=== PATIENT | male | born 1985 | race Caucasian/White ===

== ENCOUNTER 2024-06-27 20:38 | Emergency (ER) | payer SELFPAY ==
[~2024-06-27] VITALS: Ht 177.8 cm; Wt 118.0 kg
[2024-06-27 20:42] VITALS: O2SAT 98
[2024-06-27 21:52] LABS: DIFFERENTIAL COMMENT 1; HEMOGLOBIN. 12.5 g/dL (14.0-18.0); MEAN CORPUSCULAR HEMOGLOBIN 27.6 pg (28.0-32.0); MEAN CORPUSCULAR HGB CONC 31.9 g/dL (31.0-37.0); MEAN CORPUSCULAR VOLUME 86.4 fL (80.0-94.0); MEAN PLATELET VOLUME 7.9 fl (7.4-10.4); PLATELET 325 x1000/uL (130-400); RED BLOOD CELL COUNT 4.52 mill/uL (4.7-6.1); WHITE BLOOD COUNT 7.8 x1000/uL (4.5-11.0)
[2024-06-27 21:58] LABS: CHLORIDE 92 mEq/L (98-107); POTASSIUM 3.8 mEq/L (3.5-5.1); SODIUM 132 mEq/L (136-145)
[2024-06-27 21:59] LABS: CALCIUM 9.1 mg/dL (8.7-10.4); CARBON DIOXIDE 27 mEq/L (21-32)
[2024-06-27 22:04] LABS: CREATININE 0.9 mg/dL (0.6-1.3); UREA NITROGEN BLOOD 9 mg/dL (9-23)
[2024-06-27 22:06] LABS: ACETAMINOPHEN < 2 ug/mL (10-30)
[2024-06-27 22:07] LABS: ETHANOL BLOOD < 10 mg/dL (<10); GLUCOSE 547 mg/dL (70-105)
[2024-06-27 22:19] LABS: ATYPICAL LYMPHOCYTES 2
[2024-06-27 22:20] LABS: PLATELET ESTIMATE NORMAL
[2024-06-27 22:49] LABS: CLARITY URINE CLEAR (CLEAR); COLOR URINE YELLOW (YELLOW); GLUCOSE URINE 3+ (NEGATIVE); KETONES URINE NEGATIVE (NEGATIVE); LEUKOCYTE ESTERASE URINE NEGATIVE (NEGATIVE); NITRITE URINE NEGATIVE (NEGATIVE); OCCULT BLOOD URINE NEGATIVE (NEGATIVE); PH URINE 6.5 (4.5-8.0); PROTEIN URINE NEGATIVE (NEGATIVE); SPECIFIC GRAVITY URINE 1.032 (1.005-1.030); UROBILINOGEN URINE 0.2 E.U./dL (0.2-1.0)
[2024-06-27 22:59] LABS: *AMPHETAMINES SCREEN URINE NEGATIVE (NEGATIVE); *BARBITURATES SCREEN URINE NEGATIVE (NEGATIVE); *BENZODIAZEPINES SCREEN URINE NEGATIVE (NEGATIVE)
[2024-06-27 23:00] LABS: *COCAINE SCREEN URINE NEGATIVE (NEGATIVE); CANNABINOID URINE SCREEN NEGATIVE (NEGATIVE); ECSTASY MDMA SCREEN URINE NEGATIVE (NEGATIVE); METHADONE URINE SCREEN NEGATIVE (NEGATIVE); OPIATES URINE SCREEN NEGATIVE (NEGATIVE); PHENCYCLIDINE URINE SCREEN NEGATIVE (NEGATIVE)
[2024-06-27 23:06] LABS: BACTERIA URINE TRACE
[2024-06-27 23:07] LABS: RBC URINE NONE SEEN /hpf (0-2); SQUAMOUS EPITHELIAL CELL URINE RARE /lpf (RARE/1+); WBC URINE 0-2 /hpf (0-2)
[2024-06-28] MEDS ORDERED: INSULIN REGULAR (HUMULIN R) 1000UNITS/10ML VIAL SUBCUT ONE (00:45)
[2024-06-28] MEDS ORDERED: DEXTROSE 50% WATER 50ML SYRINGE IV PRN (01:00)
[2024-06-28] MEDS: INSULIN REGULAR (HUMULIN R) 1000UNITS/10ML VIAL SUBCUT ONE (01:14)
[2024-06-28] MEDS: SODIUM CHLORIDE 0.9% 1,000 ML IV ONE (01:15)
[2024-06-28 02:28] LABS: BG DEOXYHEMOGLOBIN 1.8 % (0.0-5.0)
[2024-06-28 05:38] LABS: CHLORIDE 101 mEq/L (98-107); POTASSIUM 3.8 mEq/L (3.5-5.1); SODIUM 138 mEq/L (136-145)
[2024-06-28 05:39] LABS: CARBON DIOXIDE 27 mEq/L (21-32)
[2024-06-28 05:40] LABS: CALCIUM 8.2 mg/dL (8.7-10.4)
[2024-06-28 05:44] LABS: CREATININE 0.7 mg/dL (0.6-1.3); UREA NITROGEN BLOOD 10 mg/dL (9-23)
[2024-06-28 05:49] LABS: GLUCOSE 384 mg/dL (70-105)
[2024-06-28] MEDS ORDERED: INSULIN LISPRO 100 UNITS/ML SUBCUT SCH (08:20)
[2024-06-28] MEDS: BLOOD SUGAR DIAGNOSTIC STRIP TEST SCH (09:00)
[2024-06-28] MEDS: INSULIN LISPRO 100 UNITS/ML SUBCUT SCH (10:05)
[2024-06-28 10:46] VITALS: BP 130/60; PULSE 80; RESP 16; TEMP 37.1; O2SAT 99
== END 2024-06-28 11:00 | disposition home or self-care (01) ==
LOC: ER 20:38
DX: R45.851 Suicidal ideations (principal); E11.65 Type 2 diabetes mellitus with hyperglycemia; F39 Unspecified mood [affective] disorder; Z79.4 Long term (current) use of insulin; Z79.899 Other long term (current) drug therapy
CPT/HCPCS: 80305; 80048 ×2; 81003; 80307; 82010; 80329; 80320; 85025; 36415 ×2; 99285; 82962; 82375; 82803; 96360; 96361; 96372; J1815 ×2; J7030; G0480